=== PATIENT | male | born 1970 | race Caucasian/White ===

== ENCOUNTER 2018-05-18 22:38 | Emergency (ER) | payer OTHER ==
[2018-05-18] MEDS ORDERED: NS 1,000 ML IV ONE ×2 (22:42→23:55)
[2018-05-18] MEDS ORDERED: LORazepam 2 MG/ML INJ IVP ONE (22:42)
--- NOTE | 2018-05-18 22:42 | EDPHY ---
H & P Stated Complaint: AMS Time Seen by Provider: 05/18/18 22:40 HPI/ROS: HPI The patient presents with altered mental status, bystander called 911 after he was found in a parking lot area running around naked in the cold weather. He admitted to using LSD, marijuana, alcohol tonight. He says currently he does not know what's going on but wants us to take care of him. He denies any pain, loss of consciousness.. REVIEW OF SYSTEMS 10 systems were reviewed and negative with the exception of the elements mentioned in the history of present illness. PMHx: Hypertension Soc Hx: Housed PHYSICAL General Appearance: Alert, no distress Eyes: Pupils equal and round no pallor or injection ENT, Mouth: Mucous membranes moist Respiratory: There are no retractions, lungs are clear to auscultation Cardiovascular: Tachycardic rate and regular rhythm Gastrointestinal: Abdomen is soft and non-tender, no masses, bowel sounds normal Neurological: A&O, moves all extremities Skin: Warm and dry, no rashes Musculoskeletal: Neck is supple non tender Extremities: symmetrical, full range of motion Psychiatric: Patient is mildly agitated, appears anxious Source: Patient, EMS Exam Limitations: Intoxication Constitutional: Initial Vital Signs Temperature (C) 36.5 C 05/18/18 22:47 Heart Rate 135 H 05/18/18 22:47 Respiratory Rate 18 05/18/18 22:47 Blood Pressure 148/102 H 05/18/18 22:47 O2 Sat (%) 97 05/18/18 22:47 O2 Delivery Mode Room Air Allergies/Adverse Reactions: No Known Allergies Allergy (Unverified 05/18/18 22:46) Home Medications: Medication Instructions Recorded NK [No Known Home Meds] 05/18/18 Medical Decision Making Differential Diagnosis: 47-year-old male presents brought in by ambulance from outside of his house where he was found running around naked, admits to LSD and marijuana use. Here , tachycardic, slightly hypertensive, appears anxious. He received IV fluids, Ativan with improvement in his symptoms. After several hours he felt much better, was able to walk to the bathroom without difficulty and was alert and oriented without any further hallucinations. He was discharged home. Differential diagnosis includes alcohol intoxication, polysubstance abuse, less likely closed head injury. - Data Points Laboratory Results: 05/19/18 05/18/18 00:50 22:50 Urine Opiates Screen NEGATIVE (NEGATIVE) Urine Barbiturates NEGATIVE (NEGATIVE) Ur Phencyclidine Scrn NEGATIVE (NEGATIVE) Ur Amphetamine Screen NEGATIVE (NEGATIVE) U Benzodiazepines Scrn NEGATIVE (NEGATIVE) Urine Cocaine Screen NEGATIVE (NEGATIVE) U Marijuana (THC) Screen NON-NEGATIVE H (NEGATIVE) Ethyl Alcohol 270 mg/dL H mg/dL (0-10) Medications Given: Discontinued Medications Sodium Chloride (Ns) 1,000 mls @ 0 mls/hr IV EDNOW ONE; Wide Open PRN Reason: Protocol Stop: 05/18/18 22:43 Last Admin: 05/18/18 22:51 Dose: 1,000 mls Sodium Chloride (Ns) 1,000 mls @ 0 mls/hr IV EDNOW ONE; Wide Open PRN Reason: Protocol Stop: 05/18/18 23:56 Last Admin: 05/18/18 23:58 Dose: 1,000 mls Lorazepam (Ativan Injection) 1 mg IVP EDNOW ONE Stop: 05/18/18 22:43 Last Admin: 05/18/18 22:51 Dose: 1 mg Lorazepam (Ativan Injection) 1 mg IVP EDNOW ONE Stop: 05/19/18 02:01 Last Admin: 05/19/18 02:02 Dose: 1 mg Olanzapine (Zyprexa Zydis) 10 mg PO EDNOW ONE Stop: 05/18/18 23:56 Last Admin: 05/18/18 23:56 Dose: 10 mg Departure - Departure Disposition: Home, Routine, Self-Care Clinical Impression: Polysubstance abuse Alcoholic intoxication Qualifiers: Complication of substance-induced condition: with delirium Qualified Code(s): F10.921 - Alcohol use, unspecified with intoxication delirium Condition: Good Instructions: Polysubstance Abuse (ED) Additional Instructions: Please avoid using drugs. Please return to the emergency department if your worse in any way. I have listed a primary care doctor below if you're in need of a primary care physician. Referrals: Jennifer Abreu DO [Doctor of Osteopathy] - As per Instructions
[2018-05-18] MEDS ORDERED: OLANZapine DISINTEGR 10 MG TAB ONE (23:53)
[2018-05-18] MEDS ORDERED: OLANZapine DISINTEGR 10 MG TAB PO ONE (23:55)
[2018-05-19] MEDS ORDERED: LORazepam 2 MG/ML INJ ONE (01:58)
[2018-05-19] MEDS ORDERED: LORazepam 2 MG/ML INJ IVP ONE (02:00)
[2018-05-19 06:00] VITALS: BP 125/67
== END 2018-05-19 05:58 | disposition home or self-care (01) ==
DX: F10.921 Alcohol use, unspecified with intoxication delirium (principal); E86.9 Volume depletion, unspecified; I10 Essential (primary) hypertension
CPT/HCPCS: 80305; 96374; G0480; J2060